=== PATIENT | male | born 1970 | race Caucasian/White ===

== ENCOUNTER 2016-09-20 20:44 | Observation (INO) | payer OTHER ==
[~2016-09-20] VITALS: Ht 175.3 cm; Wt 96.0 kg
[2016-09-20] MEDS ORDERED: SODIUM CHLORIDE 0.9% 1000ML 1,000 ML IV STA (21:08)
[2016-09-20] MEDS ORDERED: HYDR25TA5 PO (21:17)
[2016-09-20] MEDS ORDERED: LOSA50TA6 PO (21:17)
[2016-09-20] MEDS ORDERED: SERT-234 PO (21:17)
[2016-09-20] MEDS ORDERED: GABA800T PO (21:17)
[2016-09-20] MEDS ORDERED: MIRT30TA PO (21:17)
[2016-09-20] MEDS ORDERED: NRV/10 PO (21:17)
[2016-09-20] MEDS ORDERED: CLON1TAB3 PO (21:17)
[2016-09-20] MEDS ORDERED: OMEP40CA PO (21:17)
[2016-09-20 21:19] LABS: BASO % 0.2 %; BASO ABS # 0.01 K/uL (0-0.2); COMPLETE YES; EOS % 1.8 %; IG% 0.2 %; LYMPH % 38.1 %; LYMPH ABS # 2.51 K/uL (1.2-3.4); MEAN CELL VOLUME 84.1 fL (80-100); MEAN CORPUSCULAR HEMOGLOBIN 29.7 pg (25-34); MEAN CORPUSCULAR HGB CONC 35.3 g/dl (32-36); MEAN PLATELET VOLUME 8.3 fL (7.4-10.4); MONO % 8.5 %; NEUT % 51.2 %; PLATELET COUNT 297 K/uL (130-400); RED BLOOD COUNT 5.11 M/uL (4.7-6.1); WHITE BLOOD COUNT 6.58 K/uL (4.8-10.8)
[2016-09-20 21:36] LABS: ACETAMINOPHEN < 2 ug/ml (10-30); ALT/SGPT 78 U/L (12-78); BLOOD UREA NITROGEN 12 mg/dl (7-18); BUN/CREATININE RATIO 11.9 (10-20); CALCIUM 8.5 mg/dl (8.5-10.1); CARBON DIOXIDE 28 mmol/L (21-32); CHLORIDE 104 mmol/L (98-107); CREATININE 0.98 mg/dl (0.60-1.40); GLUCOSE 90 mg/dl (70-99); POTASSIUM 3.4 mmol/L (3.5-5.1); SODIUM 140 mmol/L (136-145)
[2016-09-20 21:41] LABS: ALKALINE PHOSPHATASE 67 U/L (45-117); AST/SGOT 40 U/L (15-37); CKMB/CK RATIO 0.8 (0-3.0)
--- NOTE | 2016-09-20 21:46 | DIAGNOSTIC IMAGING REPORT ---
CHEST ONE VIEW PORTABLE HISTORY: Overdose COMPARISON: None. FINDINGS: No pleural effusions. No pneumothorax. No focal lung consolidations to suggest pneumonia. No evidence for pulmonary edema. The heart is normal in size. Right mediastinal lobular density. This may be due the slightly rotated study. IMPRESSION: No acute process within the chest. Electronically signed by: Vikas Mendes M.D. 09/20/2016 9:44 PM Dictated Date/Time: 09/20/2016 9:42 PM
[2016-09-20 23:13] LABS: URINE APPEARANCE CLEAR (CLEAR); URINE BILIRUBIN NEG (NEG); URINE COLOR DK YELLOW; URINE NITRITE NEG (NEG); URINE PH 5.5 (4.5-7.5); URINE SPECIFIC GRAVITY 1.033 (1.000-1.030); UROBILINOGEN NEG (NEG); ZZURINE CULT IF INDIC CATH NO
[2016-09-20 23:44] LABS: MANUAL MICROSCOPIC REQUIRED? NO; REVIEW REQ? NO
[2016-09-21] VITALS (8 sets, daily range): BP systolic 114–135; BP diastolic 74–89; PULSE 77–86; TEMP 36.3–36.5; O2SAT 94–98; Ht 175.3 cm; Wt 96.0 kg
[2016-09-21 00:11] LABS: BENZODIAZEPINE, URINE POS (NEG); COCAINE,URINE NEG (NEG); PHENCYCLIDINE, URINE NEG (NEG)
--- NOTE | 2016-09-21 00:19 | EMERGENCY ROOM VISIT NOTE ---
History Report prepared by Jose: Louis Patterson Under the Supervision of: Dr. Higinio Cintron D.O. First contact with patient: 20:56 Chief Complaint: LETHARGIC Stated Complaint: LETHARGIC History of Present Illness The patient is a 45 year old male who presents to the Emergency Room via EMS with complaints of constant lethargy beginning several hours prior to arrival. The patient was being transported from his day halfway to his overnight halfway , and the patient was very lethargic. He states he took his prescribed dose of Klonopin today. As per nurse, the patient filled a prescription for Klonopin today and 23, 1 mg pills are missing from the prescription container. The patient states he is new to the area looking for work. He notes he is originally form [place]. It is noted the patient was discharged from [facility] on August 23, and was prescribed his Klonopin by Dr. Campbell. The patient denies sharing or selling his prescription and denies taking 23 pills of Klonopin. He notes he has been under a lot of stress and experiencing a lot of anxiety. 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 A total of 10 systems reviewed and were otherwise negative. Past Medical & Surgical Medical Problems: (1) No pertinent past medical history Family History Patient reports no known family medical history. Social History Housing Status: other ([facility]) Occupation Status: unemployed Current/Historical Medications Scheduled Amlodipine Besylate (Amlodipine Besylate), 10 MG PO DAILY Gabapentin (Neurontin), 800 MG PO TID Hydrochlorothiazide (Hydrochlorothiazide), 25 MG PO DAILY Losartan Potassium (Cozaar), 50 MG PO DAILY Mirtazapine (Remeron), 30 MG PO HS Omeprazole (Prilosec), 40 MG PO DAILY Sertraline (Zoloft), 200 MG PO DAILY Scheduled PRN Clonazepam (Klonopin), 1 MG PO TID PRN for Anxiety Allergies Coded Allergies: No Known Allergies (Unverified , 09/20/16) Physical Exam Vital Signs Date Time Temp Pulse Resp B/P Pulse Ox O2 Delivery O2 Flow Rate FiO2 09/21/16 00:09 86 09/20/16 23:02 84 16 111/78 96 Room Air 09/20/16 22:22 90 17 123/81 94 Nasal Cannula 2.0 09/20/16 21:45 95 16 124/83 93 Nasal Cannula 2.0 09/20/16 20:58 97 09/20/16 20:44 91 Room Air 09/20/16 20:44 36.6 96 18 154/99 91 Room Air Physical Exam CONSTITUTIONAL/VITAL SIGNS: Reviewed / noted above. GENERAL: Non-toxic in appearance. INTEGUMENTARY: Warm, dry, and [place]. HEAD: Normocephalic. EYES: without scleral icterus or trauma. ENT/OROPHARYNX: clear and moist. LYMPHADENOPATHY/NECK: Is supple without lymphadenopathy or meningismus. RESPIRATORY: Lungs clear and equal. CARDIOVASCULAR: Regular rate and rhythm. GI/ABDOMEN: Soft and nontender. No organomegaly or pulsatile mass. No rebound or guarding. Normal bowel sounds. EXTREMITIES: Warm and well perfused. BACK: No CVA tenderness. NEUROLOGICAL: Intact without focal deficits. PSYCHIATRIC: Drowsy. MUSCULOSKELETAL: Normally developed with good muscle tone. Medical Decision & Procedures ER Provider Diagnostic Interpretation: X ray results and stated below per my interpretation and radiology interpretation. CHEST ONE VIEW PORTABLE HISTORY: Overdose COMPARISON: None. FINDINGS: No pleural effusions. No pneumothorax. No focal lung consolidations to suggest pneumonia. No evidence for pulmonary edema. The heart is normal in size. Right mediastinal lobular density. This may be due the slightly rotated study. IMPRESSION: No acute process within the chest. Electronically signed by: Vikas Mendes M.D. 09/20/2016 9:44 PM Dictated Date/Time: 09/20/2016 9:42 PM Laboratory Results 09/20/16 20:40 Red Blood Count 5.11, Mean Corpuscular Volume 84.1, Mean Corpuscular Hemoglobin 29.7, Mean Corpuscular Hemoglobin Concent 35.3, Mean Platelet Volume 8.3, Neutrophils (%) (Auto) 51.2, Lymphocytes (%) (Auto) 38.1, Monocytes (%) (Auto) 8.5, Eosinophils (%) (Auto) 1.8, Basophils (%) (Auto) 0.2, Neutrophils # (Auto) 3.37, Lymphocytes # (Auto) 2.51, Monocytes # (Auto) 0.56, Eosinophils # (Auto) 0.12, Basophils # (Auto) 0.01 09/20/16 20:40 Test 09/20/16 20:40 09/20/16 21:25 09/20/16 22:46 White Blood Count 6.58 K/uL (4.8-10.8) Red Blood Count 5.11 M/uL (4.7-6.1) Hemoglobin 15.2 g/dL (14.0-18.0) Hematocrit 43.0 % (42-52) Mean Corpuscular Volume 84.1 fL (80-100) Mean Corpuscular Hemoglobin 29.7 pg (25-34) Mean Corpuscular Hemoglobin Concent 35.3 g/dl (32-36) Platelet Count 297 K/uL (130-400) Mean Platelet Volume 8.3 fL (7.4-10.4) Neutrophils (%) (Auto) 51.2 % Lymphocytes (%) (Auto) 38.1 % Monocytes (%) (Auto) 8.5 % Eosinophils (%) (Auto) 1.8 % Basophils (%) (Auto) 0.2 % Neutrophils # (Auto) 3.37 K/uL (1.4-6.5) Lymphocytes # (Auto) 2.51 K/uL (1.2-3.4) Monocytes # (Auto) 0.56 K/uL (0.11-0.59) Eosinophils # (Auto) 0.12 K/uL (0-0.5) Basophils # (Auto) 0.01 K/uL (0-0.2) RDW Standard Deviation 42.7 fL (36.4-46.3) RDW Coefficient of Variation 13.7 % (11.5-14.5) Immature Granulocyte % (Auto) 0.2 % Immature Granulocyte # (Auto) 0.01 K/uL (0.00-0.02) Anion Gap 8.0 mmol/L (3-11) Estimated GFR () 107.5 Estimated GFR (Non- 92.7 BUN/Creatinine Ratio 11.9 (10-20) Calcium Level 8.5 mg/dl (8.5-10.1) Total Bilirubin 0.7 mg/dl (0.2-1) Direct Bilirubin 0.2 mg/dl (0-0.2) Aspartate Amino Transf (AST/SGOT) 40 U/L (15-37) Alanine Aminotransferase (ALT/SGPT) 78 U/L (12-78) Alkaline Phosphatase 67 U/L (45-117) Total Creatine Kinase 136 U/L (39-308) Creatine Kinase MB 1.1 ng/ml (0.5-3.6) Creatine Kinase MB Ratio 0.8 (0-3.0) Troponin I < 0.015 ng/ml (0-0.045) Total Protein 6.9 gm/dl (6.4-8.2) Albumin 3.7 gm/dl (3.4-5.0) Lipase 264 U/L (73-393) Salicylates Level 2.1 mg/dl (2.8-20) Acetaminophen Level < 2 ug/ml (10-30) Ethyl Alcohol mg/dL < 3.0 mg/dl (0-3) Urine Color DK YELLOW Urine Appearance CLEAR (CLEAR) Urine pH 5.5 (4.5-7.5) Urine Specific [place] 1.033 (1.000-1.030) Urine Protein NEG (NEG) Urine Glucose (UA) NEG (NEG) Urine Ketones NEG (NEG) Urine Occult Blood NEG (NEG) Urine Nitrite NEG (NEG) Urine Bilirubin NEG (NEG) Urine Urobilinogen NEG (NEG) Urine Leukocyte Esterase NEG (NEG) Urine Opiates Screen NEG (NEG) Urine Methadone, Qualitative NEG (NEG) Urine Barbiturates NEG (NEG) Urine Phencyclidine (PCP) Level NEG (NEG) Ur Amphetamine/Methamphetamine NEG (NEG) MDMA (Ecstasy) Screen NEG (NEG) Urine Benzodiazepines Screen POS (NEG) Urine Cocaine Metabolite NEG (NEG) Urine Marijuana (THC) NEG (NEG) Laboratory results as stated above per my review. Medications Administered Medications (Trade) Dose Ordered Sig/Vincent Route Start Time Stop Time Status Last Admin Dose Admin Sodium Chloride (Nss 1000ml) 1,000 ml @ 999 mls/hr Q1H1M STAT IV 09/20/16 21:08 09/20/16 22:08 DC 09/20/16 21:08 999 MLS/HR ECG Indication: altered mental status Rate (beats per minute): 96 Rhythm: normal sinus Findings: no ectopy, other (no acute injury) ED Course 2058: Previous medical records were reviewed. The patient was evaluated in room B9. A complete history and physical examination was performed. 2107: Ordered Sodium Chloride 1,000 ml @ 999 mls/hr IV. 000: I spoke to Luis Anderson (Hospitalist) about the patient's case, and he will follow the patient for further evaluation. Medical Decision Etiologies such as metabolic, infection, hypoglycemia, electrolyte abnormalities , cardiac sources, intracerebral event, toxicologic, neurologic, as well as others were entertained. Is a 45-year-old male who presents to the ED with a chief complaint of lethargy. The patient is homeless. He was discharged from [facility] on September 01. He has been living locally in a homeless [facility], [place] since that time. The patient is on a number of medications from a psychiatric standpoint. Other medications include clonazepam. The patient was given a prescription for 90 clonazepam earlier today. 23 are missing from the bottle. The patient was felt to have taken the clonazepam. The patient was being sent from his day halfway to a local overnight halfway, the patient was too lethargic to go. EMS brought the patient here for evaluation. The patient awakens to have any verbal or physical stimulus. He is slurring his speech. He does answer questions appropriately although weakly due to his drowsiness. The patient has no focal deficits on exam. There is no evidence of trauma. EKG shows sinus rhythm. Chest x-ray is negative for acute disease. CBC is normal. Complete metabolic panel is normal. Acetaminophen and aspirin are nontoxic. Alcohol is negative. Tox screen is positive for benzos. The patient will be seen by the hospitalist service for further inpatient observation for benzodiazepine overdose. Consults Time Called: 3 Consulting Physician: Luis Anderson (Hospitalist) Returned Call: 5 I spoke to Luis Anderson (Hospitalist) about the patient's case, and he will follow the patient for further evaluation. Impression Primary Impression: Benzodiazepine overdose Additional Impression: Sedated Scribe Attestation The scribe's documentation has been prepared under my direction and personally reviewed by me in its entirety. I confirm that the note above accurately reflects all work, treatment, procedures, and medical decision making performed by me. Departure Information Dispostion Being Evaluated By Hospitalist (Luis Anderson (Hospitalist))
[2016-09-21] MEDS ORDERED: POLYETHYLENE (MIRALAX) 17 GM PACK PO PRN (00:30)
[2016-09-21] MEDS ORDERED: ALUMINUM/MAGNESIUM/SIMETH (MAALOX MAX) 30 ML UDC PO PRN (00:30)
[2016-09-21] MEDS ORDERED: MAGNESIUM HYDROXIDE SUSP 30 ML UDC PO PRN (00:30)
[2016-09-21] MEDS ORDERED: NITROGLYCERIN 0.4 MG SL PER TAB CHARGE SL PRN (00:30)
[2016-09-21] MEDS ORDERED: ONDANSETRON INJ 2 MG/ML 2 ML VIAL IV PRN (00:30)
--- NOTE | 2016-09-21 00:47 | History and Physical ---
History & Physical Date & Time of Service: Sep 21, 2016 at 00:35 Chief Complaint: Lethargic Primary Care Physician: History of Present Illness Source: clinic records, EMS This is a 45 year old male with PMH of HTN, GERD, recently was at the [facility] in patient psych - and was discharged with a prescription for Klonopin - [facility] a [facility] - he had been sent over by the [facility] to the ER due to increased lethargy - they had noted that he was missing about 23 pills of Klonopin from 90 tablet prescription that was filled today. Patient denies intentionally overdosing, and states he has been taking the amount that was prescribed. Denies selling the pills. Labwork and EKG looked fine here. During my exam, he is very lethargic and needs physical stimulation to arouse. Family History Patient reports no known family medical history. Social History Smoking Status: Current Every Day Smoker Occupational Status: unemployed Allergies Coded Allergies: No Known Allergies (Unverified , 09/20/16) Home Medications Scheduled Amlodipine Besylate (Amlodipine Besylate), 10 MG PO DAILY Gabapentin (Neurontin), 800 MG PO TID Hydrochlorothiazide (Hydrochlorothiazide), 25 MG PO DAILY Losartan Potassium (Cozaar), 50 MG PO DAILY Mirtazapine (Remeron), 30 MG PO HS Omeprazole (Prilosec), 40 MG PO DAILY Sertraline (Zoloft), 200 MG PO DAILY Scheduled PRN Clonazepam (Klonopin), 1 MG PO TID PRN for Anxiety Physical Exam Vital Signs Date Time Temp Pulse Resp B/P Pulse Ox O2 Delivery O2 Flow Rate FiO2 09/21/16 00:09 86 09/20/16 23:02 84 16 111/78 96 Room Air 09/20/16 22:22 90 17 123/81 94 Nasal Cannula 2.0 09/20/16 21:45 95 16 124/83 93 Nasal Cannula 2.0 09/20/16 20:58 97 09/20/16 20:44 91 Room Air 09/20/16 20:44 36.6 96 18 154/99 91 Room Air General Appearance: + pertinent finding (+lethargic, somnolent, arouses slightly to sternal rub) Head: normocephalic, atraumatic Eyes: normal inspection ENT: hearing grossly normal Neck: supple Respiratory/Chest: lungs clear, normal breath sounds, no respiratory distress, no accessory muscle use Cardiovascular: regular rate, rhythm, no edema, no murmur Abdomen/GI: normal bowel sounds, non tender, soft Extremities/Musculoskelatal: no calf tenderness, normal capillary refill, no pedal edema Neurologic/Psych: + pertinent finding (+somnolence - lethargic, not easily arousable) Diagnostics Laboratory Results Results Past 24 Hours Test 09/20/16 20:40 09/20/16 21:25 09/20/16 22:46 Range/Units White Blood Count 6.58 4.8-10.8 K/uL Red Blood Count 5.11 4.7-6.1 M/uL Hemoglobin 15.2 14.0-18.0 g/dL Hematocrit 43.0 42-52 % Mean Corpuscular Volume 84.1 80-100 fL Mean Corpuscular Hemoglobin 29.7 25-34 pg Mean Corpuscular Hemoglobin Concent 35.3 32-36 g/dl Platelet Count 297 130-400 K/uL Mean Platelet Volume 8.3 7.4-10.4 fL Neutrophils (%) (Auto) 51.2 % Lymphocytes (%) (Auto) 38.1 % Monocytes (%) (Auto) 8.5 % Eosinophils (%) (Auto) 1.8 % Basophils (%) (Auto) 0.2 % Neutrophils # (Auto) 3.37 1.4-6.5 K/uL Lymphocytes # (Auto) 2.51 1.2-3.4 K/uL Monocytes # (Auto) 0.56 0.11-0.59 K/uL Eosinophils # (Auto) 0.12 0-0.5 K/uL Basophils # (Auto) 0.01 0-0.2 K/uL RDW Standard Deviation 42.7 36.4-46.3 fL RDW Coefficient of Variation 13.7 11.5-14.5 % Immature Granulocyte % (Auto) 0.2 % Immature Granulocyte # (Auto) 0.01 0.00-0.02 K/uL Sodium Level 140 136-145 mmol/L Potassium Level 3.4 3.5-5.1 mmol/L Chloride Level 104 98-107 mmol/L Carbon Dioxide Level 28 21-32 mmol/L Anion Gap 8.0 3-11 mmol/L Blood Urea Nitrogen 12 7-18 mg/dl Creatinine 0.98 0.60-1.40 mg/dl Estimated GFR () 107.5 Estimated GFR (Non- 92.7 BUN/Creatinine Ratio 11.9 10-20 Random Glucose 90 70-99 mg/dl Calcium Level 8.5 8.5-10.1 mg/dl Total Bilirubin 0.7 0.2-1 mg/dl Direct Bilirubin 0.2 0-0.2 mg/dl Aspartate Amino Transf (AST/SGOT) 40 15-37 U/L Alanine Aminotransferase (ALT/SGPT) 78 12-78 U/L Alkaline Phosphatase 67 45-117 U/L Total Creatine Kinase 136 39-308 U/L Creatine Kinase MB 1.1 0.5-3.6 ng/ml Creatine Kinase MB Ratio 0.8 0-3.0 Troponin I < 0.015 0-0.045 ng/ml Total Protein 6.9 6.4-8.2 gm/dl Albumin 3.7 3.4-5.0 gm/dl Lipase 264 73-393 U/L Salicylates Level 2.1 2.8-20 mg/dl Acetaminophen Level < 2 10-30 ug/ml Ethyl Alcohol mg/dL < 3.0 0-3 mg/dl Urine Color DK YELLOW Urine Appearance CLEAR CLEAR Urine pH 5.5 4.5-7.5 Urine Specific [place] 1.033 1.000-1.030 Urine Protein NEG NEG Urine Glucose (UA) NEG NEG Urine Ketones NEG NEG Urine Occult Blood NEG NEG Urine Nitrite NEG NEG Urine Bilirubin NEG NEG Urine Urobilinogen NEG NEG Urine Leukocyte Esterase NEG NEG Urine Opiates Screen NEG NEG Urine Methadone, Qualitative NEG NEG Urine Barbiturates NEG NEG Urine Phencyclidine (PCP) Level NEG NEG Ur Amphetamine/Methamphetamine NEG NEG MDMA (Ecstasy) Screen NEG NEG Urine Benzodiazepines Screen POS NEG Urine Cocaine Metabolite NEG NEG Urine Marijuana (THC) NEG NEG Diagnostic Radiology CHEST ONE VIEW PORTABLE HISTORY: Overdose COMPARISON: None. FINDINGS: No pleural effusions. No pneumothorax. No focal lung consolidations to suggest pneumonia. No evidence for pulmonary edema. The heart is normal in size. Right mediastinal lobular density. This may be due the slightly rotated study. IMPRESSION: No acute process within the chest. Normal EKG Impression Assessment and Plan This is a 45 year old male with PMH of HTN, GERD here with lethargy Lethargy, likely Benzodiazepine Overdose -->patient was recently discharged from the [facility] with 90 pills of Klonopin -->prescription filled today, and 23 pills are missing from bottle -->unsure if intentional overdose, accidental overdose, or other cause of missing pills -->labwork, EKG, vitals look fine -->will give 20meq of K -->recheck PRP and Mg in AM, recheck EKG in AM -->IVFs -->psych consult in AM -->observe in tele HTN -->blood pressure on the lower end -->continue norvasc -->hold HCTZ, losartan for now, until we recheck vitals in AM DVT ppx -->SCDs FULL CODE d/c back to [facility] when medically stable VTE Prophylaxis VTE Risk Assessment Done? Y/N: Yes Risk Level: Low
[2016-09-21] MEDS ORDERED: IV FLUIDS COMPLETED PRN (02:45)
[2016-09-21] MEDS: SODIUM CHLORIDE 0.9% 1000ML 1,000 ML IV SCH ×3 (03:08→21:48)
[2016-09-21] MEDS: POTASSIUM CHLR 10 MEQ / WTR 10 MEQ in PREMIXED WATER 100 ML IV SCH ×2 (03:08→04:03)
[2016-09-21] MEDS: ACETAMINOPHEN 325 MG TAB PO PRN ×2 (03:41→07:39)
[2016-09-21 06:21] LABS: BUN/CREATININE RATIO 12.4 (10-20); CALCIUM 8.4 mg/dl (8.5-10.1); CREATININE 0.84 mg/dl (0.60-1.40); MAGNESIUM 2.2 mg/dl (1.8-2.4); POTASSIUM 4.2 mmol/L (3.5-5.1)
[2016-09-21] MEDS: AMLODIPINE BESYLATE 5 MG TAB PO SCH (07:35)
[2016-09-21] MEDS: HYDROCHLOROTHIAZIDE 25 MG TAB PO SCH (07:35)
[2016-09-21] MEDS: LOSARTAN POTASSIUM 50 MG TAB PO SCH (07:35)
[2016-09-21] MEDS: PANTOprazole SOD 40 MG TAB PO SCH (07:36)
[2016-09-21] MEDS: SERTRALINE HCL 100 MG TAB PO SCH (07:36)
[2016-09-21] MEDS: GABAPENTIN 800 MG TAB PO SCH ×3 (07:39→21:46)
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
[2016-09-21] MEDS: NICOTINE POLACRILEX 2 MG GUM MT PRN ×2 (12:02→21:46)
[2016-09-21] MEDS ORDERED: KETOROLAC TROMETHAMINE 15 MG/ML VIAL IV PRN (13:45)
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
[2016-09-21] MEDS: CLONAZEPAM 0.5 MG TAB PO PRN ×2 (14:00→18:48)
[2016-09-21] MEDS ORDERED: CLON1TAB3 PO ×2 (15:05→15:38)
--- NOTE | 2016-09-21 15:09 | Discharge Instructions ---
Discharge Instructions Admission Reason for Admission: Benzodiazepine Overdose,Sedated Discharge Discharge Diagnosis / Problem: Benzodiazepine Overdose/Anxiety disorder Discharge Goals Goal(s): Improve disease control, Diagnostic testing, Therapeutic intervention Activity Recommendations Activity Limitations: resume your previous activity . Instructions / Follow-Up Instructions / Follow-Up PLEASE ESTABLISH CARE WITH FAMILY PHYSICIAN NEED HOSPITAL FOLLOW UP IN 1-2 WEEKS PSYCHIATRY FOLLOW UP WITH DR ERICKSON IN A WEEK NO NEW PRESCRIPTION FOR KLONOPIN WILL BE GIVEN TAKE MEDICATIONS DIRECTED , WILL LEAD TO LIFE THREATENING CONDITION IF TAKEN TOO MANY MEDS /TOO OFTEN YOU NEED TO REDUCE KLONOPIN DOSE GRADUALLY AND DISCONTINUE TAKE 1 TAB TWICE DAILY NEEDED FOR ANXIETY 1 WEEK THEN 1 TAB DAILY NEEDED FOR ANXIETY FOR 1 WEEK THEN STOP PLEASE DISCUSS WITH PSYCHIATRIST REGARDING DIFFERENT MEDICATIONS /PSYCHOTHERAPY TO TREAT YOU ANXIETY DISORDER Current Hospital Diet Patient's current hospital diet: Regular Diet Discharge Diet Recommended Diet: Regular Diet Pending Studies Studies pending at discharge: no Medical Emergencies . Who to Call and When: Medical Emergencies: If at any time you feel your situation is an emergency, please call 911 immediately. . Non-Emergent Contact Non-Emergency issues call your: Primary Care Provider, Specialist ( PSYCHIATRIST ) . . "Provider Documentation" section prepared by Alida Woods. VTE Core Measure Inpt VTE Proph given/why not?: Lluvia Brandon, SCD's [place] Drug Monitoring Program Search Results: patient reviewed within database, see additional documentation Drug Monitoring Findings: ON 08/20/16 CLONAZEPAM 1 MG TABLET # 90 AT [facility] [place] [address] VIKTORIA CLEARY ON 08/11/16 CLONAZEPAM 1 MG TABLET # 45 AT [facility] [place] [address] ERICKSON
--- NOTE | 2016-09-21 15:27 | Progress Note ---
Progress Note ATTENDING NOTE : PER PA -PRESCRIPTION DRUG MONITORING PROGRAMME/PDMP PORTAL : PT FILLED ON 08/20/16 CLONAZEPAM 1 MG TABLET # 90 AT [facility] [place] [address] VIKTORIA CLEARY ON 08/11/16 CLONAZEPAM 1 MG TABLET # 45 AT [facility] [place] [address] ERICKSON presents with Over dose of BDZ WILL NOT BE DISCHARGED WITH ANY NEW SCRIPT FOR KLONOPIN [facility] policy indicates that pt's Meds ( Klonopin ) can be kept on hold if there is risk of overdose As per CM -the Director of Homeless [facility] -will not be provide assistance with medications pt mentions about a friend taking responsibly of the Klonopin-is very unreliable -high likelihood-of the friend taking the medication for himself or allow pt to over dose again pt will be scheduled with an outpatient appointment at [facility] as they can get him a locked pill box, pt will be discharged with limited dose of Klonopin taper dose to prevent withdrawal will need close follow up with Psychiatrist Dr Lore lauren
[2016-09-21] MEDS ORDERED: MIRTAZAPINE TAB 15 MG TAB PO SCH (21:00)
[2016-09-22] MEDS: CLONAZEPAM 0.5 MG TAB PO PRN (04:23)
[2016-09-22 07:08] VITALS: BP 130/97; PULSE 84; TEMP 36.4; O2SAT 96
[2016-09-22] MEDS: SODIUM CHLORIDE 0.9% 1000ML 1,000 ML IV SCH (08:32)
[2016-09-22] MEDS: AMLODIPINE BESYLATE 5 MG TAB PO SCH (08:33)
[2016-09-22] MEDS: SERTRALINE HCL 100 MG TAB PO SCH (08:33)
[2016-09-22] MEDS: HYDROCHLOROTHIAZIDE 25 MG TAB PO SCH (08:33)
[2016-09-22] MEDS: PANTOprazole SOD 40 MG TAB PO SCH (08:34)
[2016-09-22] MEDS: LOSARTAN POTASSIUM 50 MG TAB PO SCH (08:34)
[2016-09-22] MEDS: GABAPENTIN 800 MG TAB PO SCH (08:34)
[2016-09-22] MEDS ORDERED: DESTROY THIS MEDICATION ONE (10:45)
[2016-09-22] MEDS ORDERED: CLONAZEPAM 1 MG TAB PO SCH ×3 (10:45)
[2016-09-22 10:57] VITALS: BP 130/97; PULSE 84; TEMP 36.4; O2SAT 96
--- NOTE | 2016-09-22 11:02 | Progress Note ---
Internal Med Progress Note Date of Service: Sep 22, 2016. Provider Documentation: SUBJECTIVE: alert and awake, pacing in room anxious to be discharged home still in denial -took only 2 pills of Klonopin and fell asleep that brought him to hospital does not want update his Psychiatrist -thinks it will tarnish his name and he will not be given any prescription for Klonopin pt is counselled over and over again to take medications as instructed will be discharged on taper dose of Klonopin 1 tab bid prn for 1 week then 1 tab daily PRN and stop OBJECTIVE: Vital Signs-as noted below Exam: General-awake and alert, anxious Eyes-sclera non icteric , PERRLA/EOMI ENT-moist oral mucosa , no erythema or congestion in oropharynx, normal lips Neck-no thyromegaly , trachea mid line Lungs-cta , no wheeze or rales Heart-regular S1/S2 Abdomen-soft, non tender Extremities-no rash or deformity Neuro-no focal neurological deficit Lab data as noted below. ASSESSMENT & PLAN: This is a 45 year old male with PMH of HTN, GERD, anxiety disorder , depression here with lethargy Benzodiazepine Overdose awake and alert now walking in hallway wants to be discharged home presented with lethargy , unresponsiveness , sent form Home alf -->recent Psychiatric admission at [facility] -follows with Psychiatry Dr Prieto Prescribed Klonopin 1 mg TID prn for anxiety ( as pt was having frequent panic attacks ) recently presents with lethargy , unresponsiveness , approx 20-23 pills are missing from bottle --pt denies of intentional overdose-repeats taking on 2 pills as after taking 1 pill did not help with his anxiety wanted to feel relaxed Psych eval requested pt showing drug abuse /addictive behavior with accidental overdose recommend pt should not be prescribed benzodiazepines (or any other addicting medications) due to his inability to take them safely and appropriately. does not meet criteria for involuntary commitment of in patient admission pt is started on lower dose of Klonopin to prevent withdrawal and gradual taper by decreasing to 1mg bid for 1 week, then 1mg daily for 1 week, then stop. updated Pharmacy -only # 21 Klonopin tablet dispensed from Pt's bottle with new instructions for taper dose rest of the pills are destroyed pt is asked to follow up with his Psychiatrist Dr Adrian Campbell office updated by Psychiatry Dr Jas Depression : Denies acute depressives symptoms and Suicidal ideation evaluated by Psychiatry in patient continue current doses of Remeron and Zoloft, f/u with Psychiatry Dr. Campbell as out pt . pt is instructed to wean off BDZ -due to abuse /dependency pt will need psychotherapy / behavioral techniques of managing chronic anxiety symptoms. Tobacco abuse disorder : smokes 1 pk of cig a day smoking cessation counselling provided -pt is adamant to smoke wants to go off the floor to smoke updated pt -smoking if prohibited while being in patient Nicorette gum PRN Chronic pain syndrome chronic pain in head and neck form prior injury cont Gabapentin avoid Narcotic pain meds PRN Tylenol /Toradol ordered Low K : replaced HTN -->blood pressure stable -->continue Norvasc/ HCTZ, losartan DVT ppx -->SCDs ambulate FULL CODE medically stable to be discharged lives in homeless alf Pt will need close follow up with Psychiatry Dr Flores pt is counselled repeated times to avoid misuse /overuse of BDZ Vital Signs: Date Time Temp Pulse Resp B/P Pulse Ox O2 Delivery O2 Flow Rate FiO2 09/22/16 07:58 Room Air 09/22/16 07:08 36.4 84 16 130/97 96 Room Air 09/22/16 00:00 Room Air 09/21/16 22:32 36.5 78 18 114/80 94 Room Air 09/21/16 20:00 Room Air 09/21/16 16:00 94 Room Air 09/21/16 15:17 36.3 86 24 119/77 94 Room Air 09/21/16 12:00 Room Air 09/21/16 12:00 36.5 78 22 119/82 98 Room Air 09/21/16 11:12 36.5 78 24 119/82 95 Room Air Lab Results: Results Past 24 Hours Test 09/21/16 21:48 09/22/16 07:39 Range/Units Bedside Glucose 114 124 70-99 mg/dl
--- NOTE | 2016-09-22 11:03 | Discharge Summary ---
Discharge Summary Admission Date: Sep 21, 2016 at 00:33 Discharge Date: Sep 22, 2016 Discharge Disposition: Home ([facility]IV[facility] IN [facility] Principal Diagnosis: Benzodiazepine Overdose/Anxiety disorder Consultations: PSYCHIATRY DR MARK Medication Reconciliation New Medications: Clonazepam (Klonopin) 1 Mg Tab 1 TAB PO BID PRN for Anxiety for 14 Days, #21 TAB 1 mg by mouth twice daily for 1 week then 1 mg by mouth once daily for 1 week then stop Continued Medications: Amlodipine Besylate (Amlodipine Besylate) 10 Mg Tab 10 MG PO DAILY Gabapentin (Neurontin) 800 Mg Tab 800 MG PO TID, TAB Hydrochlorothiazide (Hydrochlorothiazide) 25 Mg Tab 25 MG PO DAILY Losartan Potassium (Cozaar) 50 Mg Tab 50 MG PO DAILY, TAB Mirtazapine (Remeron) 30 Mg Tab 30 MG PO HS, TAB Omeprazole (Prilosec) 40 Mg Capcr 40 MG PO DAILY, CAP Sertraline (Zoloft) 100 Mg Tab 200 MG PO DAILY, TAB Discontinued Medications: Clonazepam (Klonopin) 1 Mg Tab 1 MG PO TID PRN for Anxiety, TAB Referrals At Discharge Follow up Referrals: Physician Referral - Please Call For Appointment with Newton Erickson M.D. Admission Information HPI (per Admitting provider): This is a 45 year old male with PMH of HTN, GERD, recently was at the [facility] [place] [facility] in patient psych - and was discharged with a prescription for Klonopin - has been at a homeless chcf - he had been sent over by the [facility] to the ER due to increased lethargy - they had noted that he was missing about 23 pills of Klonopin from 90 tablet prescription that was filled today. Patient denies intentionally overdosing, and states he has been taking the amount that was prescribed. Denies selling the pills. Labwork and EKG looked fine here. During my exam, he is very lethargic and needs physical stimulation to arouse. Physical Exam (per Admitting): General Appearance: + pertinent finding (+lethargic, somnolent, arouses slightly to sternal rub) Head: normocephalic, atraumatic Eyes: normal inspection ENT: hearing grossly normal Neck: supple Respiratory/Chest: lungs clear, normal breath sounds, no respiratory distress, no accessory muscle use Cardiovascular: regular rate, rhythm, no edema, no murmur Abdomen/GI: normal bowel sounds, non tender, soft Extremities/Musculoskelatal: no calf tenderness, normal capillary refill, no pedal edema Neurologic/Psych: + pertinent finding (+somnolence - lethargic, not easily arousable) Hospital Course This is a 45 year old male with PMH of HTN, GERD, anxiety disorder , depression here with lethargy Benzodiazepine Overdose awake and alert now walking in hallway wants to be discharged home presented with lethargy , unresponsiveness , sent form Home chcf -->recent Psychiatric admission at [facility] -follows with Psychiatry Dr Prieto Prescribed Klonopin 1 mg TID prn for anxiety ( as pt was having frequent panic attacks ) recently presents with lethargy , unresponsiveness , approx 20-23 pills are missing from bottle --pt denies of intentional overdose-repeats taking on 2 pills as after taking 1 pill did not help with his anxiety wanted to feel relaxed Psych eval requested pt showing drug abuse /addictive behavior with accidental overdose recommend pt should not be prescribed benzodiazepines (or any other addicting medications) due to his inability to take them safely and appropriately. does not meet criteria for involuntary commitment of in patient admission pt is started on lower dose of Klonopin to prevent withdrawal and gradual taper by decreasing to 1mg bid for 1 week, then 1mg daily for 1 week, then stop. updated Pharmacy -only # 21 Klonopin tablet dispensed from Pt's bottle with new instructions for taper dose rest of the pills are destroyed pt is asked to follow up with his Psychiatrist Dr Adrian Erickson office updated by Psychiatry Dr Mark Depression : Denies acute depressives symptoms and Suicidal ideation evaluated by Psychiatry in patient continue current doses of Remeron and Zoloft, f/u with Psychiatry Dr. Erickson as out pt . pt is instructed to wean off BDZ -due to abuse /dependency pt will need psychotherapy / behavioral techniques of managing chronic anxiety symptoms. Tobacco abuse disorder : smokes 1 pk of cig a day smoking cessation counselling provided -pt is adamant to smoke wants to go off the floor to smoke updated pt -smoking if prohibited while being in patient Nicorette gum PRN Chronic pain syndrome chronic pain in head and neck form prior injury cont Gabapentin avoid Narcotic pain meds PRN Tylenol /Toradol ordered Low K : replaced HTN -->blood pressure stable -->continue Norvasc/ HCTZ, losartan DVT ppx -->SCDs ambulate FULL CODE medically stable to be discharged lives in homeless chcf Pt will need close follow up with Psychiatry Dr Flores pt is counselled repeated times to avoid misuse /overuse of BDZ Total time spent on discharge = This includes examination of the patient, discharge planning, medication reconciliation, and communication with other providers. Discharge Instructions DI: Medical v4 Discharge Instructions Admission Reason for Admission: Benzodiazepine Overdose,Sedated Discharge Discharge Diagnosis / Problem: Benzodiazepine Overdose/Anxiety disorder Discharge Goals Goal(s): Improve disease control, Diagnostic testing, Therapeutic intervention Activity Recommendations Activity Limitations: resume your previous activity . Instructions / Follow-Up Instructions / Follow-Up PLEASE ESTABLISH CARE WITH FAMILY PHYSICIAN NEED HOSPITAL FOLLOW UP IN 1-2 WEEKS PSYCHIATRY FOLLOW UP WITH DR ERICKSON IN A WEEK NO NEW PRESCRIPTION FOR KLONOPIN WILL BE GIVEN TAKE MEDICATIONS DIRECTED , WILL LEAD TO LIFE THREATENING CONDITION IF TAKEN TOO MANY MEDS /TOO OFTEN YOU NEED TO REDUCE KLONOPIN DOSE GRADUALLY AND DISCONTINUE TAKE 1 TAB TWICE DAILY NEEDED FOR ANXIETY 1 WEEK THEN 1 TAB DAILY NEEDED FOR ANXIETY FOR 1 WEEK THEN STOP PLEASE DISCUSS WITH PSYCHIATRIST REGARDING DIFFERENT MEDICATIONS /PSYCHOTHERAPY TO TREAT YOU ANXIETY DISORDER Current Hospital Diet Patient's current hospital diet: Regular Diet Discharge Diet Recommended Diet: Regular Diet Pending Studies Studies pending at discharge: no Medical Emergencies . Who to Call and When: Medical Emergencies: If at any time you feel your situation is an emergency, please call 911 immediately. . Non-Emergent Contact Non-Emergency issues call your: Primary Care Provider, Specialist ( PSYCHIATRIST ) . . "Provider Documentation" section prepared by Alida Woods. VTE Core Measure Inpt VTE Proph given/why not?: VIKTOR [place] Drug Monitoring Program Search Results: patient reviewed within database, see additional documentation Drug Monitoring Findings: ON 08/20/16 CLONAZEPAM 1 MG TABLET # 90 AT [facility] [place] [facility] [address] VIKTORIA CLEARY ON 08/11/16 CLONAZEPAM 1 MG TABLET # 45 AT [facility] [place] [facility] [address] ERICKSON Additional Copies To Newton Erickson M.D.
[2016-09-23 13:14] LABS: HYDROXYETHYLFLURAZEPAM CONF NEGATIVE NG/ML (CUTOFF=50); HYDROXYMIDAZOLAM NEGATIVE NG/ML (CUTOFF=50); HYDROXYTRIAZOLAM CONF NEGATIVE NG/ML (CUTOFF=50); TEMAZEPAM CONF NEGATIVE NG/ML (CUTOFF=50)
== END 2016-09-22 11:30 | disposition home or self-care (01) ==
LOC: ENRESERVTM → ENRESERVDT → C.EDB 20:52 → C.MED 09-21 00:33 → C.MS2W 09-21 21:52
PROVIDERS: ADMIT Family Medicine; ATTEND Hospitalist
DX: T42.4X1A Poisoning by benzodiazepines, accidental (unintentional), initial encounter (principal); I10 Essential (primary) hypertension; K21.9 Gastro-esophageal reflux disease without esophagitis; E66.9 Obesity, unspecified; F17.210 Nicotine dependence, cigarettes, uncomplicated; G89.4 Chronic pain syndrome; F32.9 Major depressive disorder, single episode, unspecified; Z59.0 Homelessness